=== PATIENT | male | born 1985 | race Hispanic/Latino ===

== ENCOUNTER 2024-02-21 22:30 | Emergency (ER) | payer OTHER, SELFPAY ==
[2024-02-21 22:30] VITALS: BMI 28.1
[2024-02-21 22:32] VITALS: BP 126/83
--- NOTE | 2024-02-21 23:25 | ED.GENMED ---
History of Present Illness
<Louise Bullock MD, Resident - Last Filed: 02/21/24 23:45>
General
Chief Complaint: Headache
Time Seen by Provider: 02/21/24 23:05
History of Present Illness
History of Present Illness:
39 y/o male with no significant past medical history presenting to the ED with headache. Pt cannot speak [place]ic fluently but notes that has had occipital headache for the pas t 2 weeks. Notes headache is worse in the morning (10/10) but is
currently less severe (5/10). Took tylenol for pain without improvement. Denies nausea, vomiting, fever, change in vision, neck pain, photophobia, phonophobia, slurred speech, weakness, lightheadedness, dizziness. Notes his headache is similar to
his prior episodes of headache but is lasting longer. Denies recent injury.
Past History
<Louise Bullock MD, Resident - Last Filed: 02/21/24 23:45>
Past History
ED Past Medical History: None
ED Past Surgical History: None
Review of Systems
<Louise Bullock MD, Resident - Last Filed: 02/21/24 23:45>
Review of Systems
Constitutional: Reports no symptoms
EENT: Reports no symptoms
Respiratory: Reports no symptoms
Cardiac: Reports no symptoms
ABD/GI: Reports no symptoms
: Reports no symptoms
Musculoskeletal: Reports no symptoms
Skin: Reports no symptoms
Neurological: Reports headache
Endocrine: Reports no symptoms
Hematologic/Lymphatic: Reports no symptoms
Psychiatric: Reports no symptoms
Phy Exam
<Louise Bullock MD, Resident - Last Filed: 02/21/24 23:45>
Physical Exam
Physical Exam:
GENERAL: Alert, in no apparent distress
EYE: pupils equal and reactive
NECK: Supple, no significant adenopathy.
ENT: o/p clr, mmm.
CARDIAC: Regular rate and rhythm.
LUNGS: Clear breath sounds bilaterally, no acute respiratory distress, no wheezes/rales/rhonchi
ABDOMEN: Soft, without focal tenderness, no r/g, no cvat
NEUROLOGICAL: Alert and oriented, no focal neuro deficits. No meningismus.
SKIN: Warm and dry, skin intact.
MUSCULOSKELETAL: No edema, well perfused.
PSYCH: Normal and appropriate interaction.
Course
<Louise Bullock MD, Resident - Last Filed: 02/21/24 23:45>
Orders/Labs/Results
Orders:
Orders
02/21/24 23:40
Ketorolac [Toradol] 10 mg PO NOW STA
02/21/24 23:44
Ibuprofen [Motrin] 400 mg PO NOW STA
Metoclopramide [Reglan] 10 mg PO NOW STA
02/22/24 00:00
Diphenhydramine [Benadryl] 25 mg IV NOW STA
Ketorolac [Toradol] 15 mg IV NOW STA
Metoclopramide [Reglan] 10 mg IV NOW STA
02/22/24 00:01
0.9% Sodium Chloride 1000 ml [Nss] 1,000 ml IV BOLUS
Vital Signs
Initial and Last Documented VS:
Initial Vital Signs
Temp Pulse Resp BP Pulse Ox
98.4 F 71 16 126/83 99
02/21/24 22:32 02/21/24 22:32 02/21/24 22:32 02/21/24 22:32 02/21/24 22:32
Last Documented Vital Signs
Temp Pulse Resp BP Pulse Ox
97.5 F 67 18 115/72 96
02/21/24 23:45 02/21/24 23:45 02/21/24 23:45 02/21/24 23:45 02/21/24 23:45
<Tasia Nieto DO - Last Filed: 02/22/24 01:27>
Orders/Labs/Results
Orders:
Orders
02/21/24 23:40
Ketorolac [Toradol] 10 mg PO NOW STA
02/21/24 23:44
Ibuprofen [Motrin] 400 mg PO NOW STA
Metoclopramide [Reglan] 10 mg PO NOW STA
02/22/24 00:00
Diphenhydramine [Benadryl] 25 mg IV NOW STA
Ketorolac [Toradol] 15 mg IV NOW STA
Metoclopramide [Reglan] 10 mg IV NOW STA
02/22/24 00:01
0.9% Sodium Chloride 1000 ml [Nss] 1,000 ml IV BOLUS
Vital Signs
Initial and Last Documented VS:
Initial Vital Signs
Temp Pulse Resp BP Pulse Ox
98.4 F 71 16 126/83 99
02/21/24 22:32 02/21/24 22:32 02/21/24 22:32 02/21/24 22:32 02/21/24 22:32
Last Documented Vital Signs
Temp Pulse Resp BP Pulse Ox
97.5 F 67 18 115/72 96
02/21/24 23:45 02/21/24 23:45 02/21/24 23:45 02/21/24 23:45 02/21/24 23:45
<Louise Bullock MD, Resident - Last Filed: 02/21/24 23:45>
*Critical Care Note
Total Time (30-74mins, 75-104mins- exclusive of procedures): Not Applicable
ED Attending Note
<Louise Bullock MD, Resident - Last Filed: 02/21/24 23:45>
-
Portions of this chart may have been created with voice recognition software.� Occasional wrong word or��sound alike� substitutions may have occurred due to the inherent limitations of voice recognition software.
<Tasia Nieto, DO - Last Filed: 02/22/24 01:27>
ED Attending Note
Patient seen and examined by attending physician: Yes
I performed the substantive portion of visit, reviewed & personally made and approve the management plan that is documented in note by myself or CARLOS EDUARDO.: Yes
I performed a history and physical exam of patient and discussed management with resident, I reviewed resident's note and agree with documented findings and plan of care.: Yes
ED Attending Note:
39-year-old male without significant past medical history presenting for headache for 2 weeks. Patient reports occipital headache. Denies inciting injury or trauma. He is not taking Tylenol for the headache without significant relief. Does
report history of headache in the past. Denies fever. Denies neck pain. Denies visual changes. Denies photophobia or phonophobia. Denies nausea or vomiting. Denies weakness or numbness to his extremities. Vital signs on arrival are normal.
On exam patient is well-appearing, nontoxic. Symptom presentation appears most consistent with tension versus migrainous headache. No focal neurologic deficits with lower suspicion for central neurologic process. No meningismus or fever, without
concern for meningitis. No report of trauma, without concern for intracranial injury. Normal blood pressure, without concern for pseudotumor cerebri. Will try cocktail and reassess for improvement. No current indication for advanced imaging.
01:30 -on reassessment patient is resting comfortably, reports symptom improvement. Continue to suspect migrainous headache. Feel stable for discharge. Return precautions discussed and patient verbalized understand
Discharge Plan
Departure
Referrals:
UNKNOWN - PT DOES,NOT KNOW [Family Provider] -
Interventions
Interventions:
*Risk Screen - Suicide Last Done: 02/21/24 22:32
*General Assessment Last Done: 02/21/24 23:37
*Neglect/Abuse Screening Last Done: 02/21/24 22:32
ED- Fall Risk Assessment Last Done: 02/21/24 23:38
*ED COVID-19 Vaccine History Last Done: 02/21/24 23:38
ED- Neurological Assessment Last Done: 02/21/24 23:40
Discharge Date and Time
Print Language: BRUNE[place]
[2024-02-21 23:45] VITALS: BP 115/72
[2024-02-22] MEDS: NSS 1000 IV (00:33)
[2024-02-22] MEDS: BENADRYL 25 MG IV (00:34)
[2024-02-22] MEDS: TORADOL 15 MG IV (00:34)
[2024-02-22] MEDS: REGLAN 10 MG IV (00:34)
[2024-02-22 02:22] VITALS: BP 104/68
== END 2024-02-22 02:24 | disposition home or self-care (01) ==
LOC: EMR 22:30
PROVIDERS: EMERGENCY PHYSICIAN Student in an Organized Health Care Education/Training Program
DX: R51.9 Headache, unspecified (principal)
CPT/HCPCS: 99284; 96374; 96375 ×2; 96361

== ENCOUNTER 2024-03-13 19:27 | Emergency (ER) | payer SELFPAY ==
[2024-03-13 19:37] VITALS: BP 132/90
--- NOTE | 2024-03-13 19:42 | ED.GENMED ---
ED Provider Triage
<Zuleika June PA-C - Last Filed: 03/13/24 19:43>
-
Patient seen by provider in Triage?: Seen in Triage
Attestation: A medical screening examination has been initiated by a qualified medical provider. Based on the assessment performed at this time, it has been determined that an emergent medical condition may exist and the patient has been informed
that further medical evaluation and possible additional diagnostic testing may be needed.
HPI: 39yoM here with headaches x 4 years. Slightly worse today. Seen in ED last month for the same. Has never had head imaging previously.
GENERAL: Alert , in no apparent distress
EYE: No visual abnormalities.
NECK: Trachea midline
ENT: No visible abnormalities.
LUNGS: No acute respiratory distress
NEUROLOGICAL: Alert and oriented
SKIN: Skin intact. No visible changes.
MUSCULOSKELETAL: Moving extremities normally
PSYCH: Normal and appropriate interaction.
This is a medical evaluation conducted in person to initiate diagnostic evaluation and provide initial therapeutics. Please see further documentation by the treating clinician.
CT head ordered.
History of Present Illness
<Zuleika June PA-C - Last Filed: 03/13/24 19:43>
General
Chief Complaint: Headache
Time Seen by Provider: 03/13/24 21:25
<Kike Mandujano DO - Last Filed: 03/13/24 23:31>
General
Source: patient
History of Present Illness
History of Present Illness:
39-year-old male presents with a right posterior headache that he states is a been ongoing for 4 years. Patient states he usually takes Tylenol feels better but today Tylenol did not really work as well. He states the pain is only mild now. Also
feels some rumbling in his upper stomach and a little bit of discomfort epigastric region. Does not drink alcohol. No fevers. No vomiting. No back pain. No chest pain. No shortness of breath.
Past History
<Zuleika June PA-C - Last Filed: 03/13/24 19:43>
Past History
ED Past Medical History: None
ED Past Surgical History: None
Phy Exam
<Kike Mandujano DO - Last Filed: 03/13/24 23:31>
Physical Exam
Physical Exam:
CONSTITUTIONAL Patient alert and oriented to person, place and time. Well-appearing. Vital signs reviewed.
HEAD atraumatic, normocephalic.
EYES eyelids normal to inspection, Extraocular muscles intact, Conjunctiva normal, Sclera normal.
NECK normal range of motion, Trachea midline, no jugular venous distention.
RESPIRATORY CHEST No respiratory distress noted, Chest expansion equal, Bilateral breath sounds clear.
CARDIOVASCULAR regular rate and rhythm, Heart sounds normal.
ABDOMEN abdomen nontender, Bowel sounds normal. No distention.
BACK normal inspection, no obvious deformities
UPPER EXTREMITY range of motion normal, Motor strength normal, no cyanosis, no edema.
LOWER EXTREMITY range of motion normal, Motor strength normal, no cyanosis, no edema.
NEURO Speech normal, No focal motor deficits, Saniya coma scale 15, Memory normal, Cranial Nerves intact to screening exam. No pronator drift. Normal [id number].
SKIN skin warm, dry, and normal in color.
Course
<Zuleika June PA-C - Last Filed: 03/13/24 19:43>
Orders/Labs/Results
Orders:
Orders
03/13/24 19:41
CT Head W/o Iv Contrast Urgent
Comment:
Reason For Exam: ongoing headaches
03/13/24 22:34
Complete Blood Count/With Diff Urgent
Comprehensive Metabolic Panel Urgent
Lipase Urgent
03/13/24 22:34
03/13/24 22:34
Vital Signs
Initial and Last Documented VS:
Initial Vital Signs
Temp Pulse Resp BP Pulse Ox
98.4 F 86 18 132/90 99
03/13/24 19:37 03/13/24 19:37 03/13/24 19:37 03/13/24 19:37 03/13/24 19:37
Last Documented Vital Signs
Temp Pulse Resp BP Pulse Ox
98.4 F 72 18 113/83 96
03/13/24 19:37 03/13/24 22:36 03/13/24 22:36 03/13/24 22:00 03/13/24 20:58
<Kike Mandujano, DO - Last Filed: 03/13/24 23:31>
Orders/Labs/Results
Orders:
Orders
03/13/24 19:41
CT Head W/o Iv Contrast Urgent
Comment:
Reason For Exam: ongoing headaches
03/13/24 22:34
Complete Blood Count/With Diff Urgent
Comprehensive Metabolic Panel Urgent
Lipase Urgent
03/13/24 22:34
03/13/24 22:34
Vital Signs
Initial and Last Documented VS:
Initial Vital Signs
Temp Pulse Resp BP Pulse Ox
98.4 F 86 18 132/90 99
03/13/24 19:37 03/13/24 19:37 03/13/24 19:37 03/13/24 19:37 03/13/24 19:37
Last Documented Vital Signs
Temp Pulse Resp BP Pulse Ox
98.4 F 72 18 113/83 96
03/13/24 19:37 03/13/24 22:36 03/13/24 22:36 03/13/24 22:00 03/13/24 20:58
<Kike Mandujano, DO - Last Filed: 03/13/24 23:31>
MDM/Problems Addressed
Differential Diagnosis Includes:
Intracranial hemorrhage, subarachnoid hemorrhage, meningitis, migraine, tension headache, cluster headache, gastritis, esophagitis, pancreatitis, duodenitis
MDM/Problems Addressed:
Headache, epigastric pain
<Kike Mandujano DO - Last Filed: 03/13/24 23:31>
*Radiology
Radiology exam reviewed: preliminary read by ED provider (No obvious intracranial hemorrhage) and radiology read reviewed
*Pulse Oximetry
Patient hypoxic: no
*Critical Care Note
Total Time (30-74mins, 75-104mins- exclusive of procedures): Not Applicable
Data Reviewed
Source: patient
Further Testing Considered But Not Given:
Consider CT of the abdomen but abdomen soft and really nontender on exam.
<Kike Mandujano DO - Last Filed: 03/13/24 23:31>
Patient Management
Escalation/DeEscalation of care consider admission/obs:
Patient appears well. Nonfocal neuroexam. Symptoms have been ongoing for years. CT negative. Okay for discharge. Labs normal. No meningismus. No mastoiditis by exam.
ED Attending Note
<Zuleika June PA-C - Last Filed: 03/13/24 19:43>
-
Portions of this chart may have been created with voice recognition software.� Occasional wrong word or��sound alike� substitutions may have occurred due to the inherent limitations of voice recognition software.
Discharge Plan
Departure
Patient Disposition: Home (Routine Discharge)
Date of Disposition: 03/13/24
Time of Disposition: 23:28
Patient with high blood pressure during this ER visit?: No
Discharge Problem:
Headache
Instructions: Headache, Adult (DC)
Prescriptions:
No Action
acetaminophen 500 mg Tablet
1,000 mg PO DAILY
Referrals:
UNKNOWN - PT DOES,NOT KNOW [Family Provider] -
Activity Restrictions/Additional Instructions:
Please see your doctor in follow-up in the next 3 to 5 days. Return immediately for worsening symptoms, fevers, vomiting, weakness of any kind or any other concerns.
Interventions
Interventions:
*Risk Screen - Suicide Last Done: 03/13/24 19:37
*General Assessment Last Done: 03/13/24 19:37
*Neglect/Abuse Screening Last Done: 03/13/24 19:37
ED- Fall Risk Assessment Last Done: 03/13/24 20:58
*ED COVID-19 Vaccine History Last Done: 03/13/24 19:37
ED- Neurological Assessment Last Done: 03/13/24 20:58
Discharge Date and Time
Print Language: CITIZ[place]
[2024-03-13 20:49] VITALS: BMI 27.3
[2024-03-13 20:53] VITALS: BP 116/87
[2024-03-13 21:00] VITALS: BP 116/83
[2024-03-13 22:00] VITALS: BP 113/83
[2024-03-13 22:42] LABS: % Basophils 0.3 % (0-2); % Eosinophils 2.7 % (0-6); % Immature Granulocytes 0.2 % (0-0.5); % Lymphocytes 34.8 % (20.5-51.1); % Monocytes 8.5 % (1.7-9.3); % Neutrophils 53.5 % (42.2-75.2); Absolute Eosinophils 0.2 10^3/uL (0-0.7); Absolute Lymphocytes 2.3 10^3/uL (1.2-3.4); Absolute Monocytes 0.6 10^3/uL (0.1-0.6); Absolute Neutrophils 3.5 10^3/uL (1.4-6.5); Hematocrit 42.5 % (39.0-52.0); Hemoglobin 14.9 g/dL (13.0-18.0); Mean Corp Hgb Conc. 35.1 g/dL (33.0-37.0); Mean Corpuscular Hgb 30.7 pg (27.0-31.0); Mean Corpuscular Volume 87.4 fL (80.0-94.0); Mean Platelet Volume 9.1 fL (7.4-10.4); Nucleated Red Blood Cells % 0 % (-); Platelet Count 236 10^3/uL (130-400); Red Blood Cell Count 4.86 10^6/uL (4.70-6.10); Red Cell Dist. Width 12.1 % (11.5-14.5); White Blood Cell Count 6.6 10^3/uL (4.8-10.8)
[2024-03-13 22:55] LABS: ALT (SGPT) 48 U/L (0-50); AST (SGOT) 35 U/L (17-59); Albumin 4.6 g/dl (3.5-5.0); Alkaline Phosphatase 67 U/L (38-126); Blood Urea Nitrogen 13 mg/dl (9-20); Calcium 9.2 mg/dl (8.4-10.2); Carbon Dioxide 24 mmol/L (22-30); Chloride 102 mmol/L (98-107); Estimated Creatinine Clearance > 125 ml/min; Glucose 95 mg/dl (70-99); Lipase 66 U/L (23-300); Potassium 3.9 mmol/L (3.5-5.1); Sodium 135 mmol/L (135-145); Total Bilirubin 0.5 mg/dl (0.2-1.3); Total Protein 7.1 g/dl (6.3-8.2); eGFR > 60.00
[2024-03-14 00:05] VITALS: BP 111/86
== END 2024-03-14 00:05 | disposition home or self-care (01) ==
LOC: EMR 19:27
PROVIDERS: EMERGENCY PHYSICIAN Emergency Medicine
DX: R51.9 Headache, unspecified (principal); R10.13 Epigastric pain
CPT/HCPCS: 99284; 70450; 80053; 83690; 85025